=== PATIENT | female | born 1980 | race Caucasian/White ===

== ENCOUNTER 2018-11-28 08:32 | Day surgery (SDC) | payer OTHER ==
[2018-11-28] MEDS ORDERED: Lactated Ringers 1,000 ML IV SCH (08:45)
[2018-11-28] MEDS ORDERED: Cyanocobalamin (Vitamin B12) 1,000 MCG/ML SDV IM ONE (09:00)
[2018-11-28] MEDS ORDERED: VITAMIN K IV ONE ×4 (09:45)
[2018-11-28] MEDS ORDERED: THIAMINE IV ONE ×4 (09:45)
[2018-11-28] MEDS ORDERED: CHROMIUM IV ONE ×4 (09:45)
[2018-11-28] MEDS ORDERED: ZINC IV ONE ×4 (09:45)
[2018-11-28] MEDS ORDERED: [UNRECOGNIZED DRUG - OTHER] IV ONE ×4 (09:45)
[2018-11-28] MEDS ORDERED: MVI IV ONE ×4 (09:45)
[2018-11-28] MEDS ORDERED: MANG IV ONE ×4 (09:45)
[2018-11-28] MEDS ORDERED: COPPER IV ONE ×4 (09:45)
[2018-11-28] MEDS ORDERED: Glycopyrrolate 0.2 MG/ML 2 ML SDV IVPUSH ONE (09:45)
[2018-11-28] MEDS ORDERED: fentaNYL 100 MCG/2 ML SDV ONE (11:03)
[2018-11-28] MEDS ORDERED: Midazolam 1 MG/ML 2 ML SDV ONE (11:03)
[2018-11-28] MEDS ORDERED: Propofol 200 MG/20 ML SDV ONE (11:03)
[2018-11-28] MEDS ORDERED: Dexamethasone 4 MG/ML SDV ONE (11:26)
[2018-11-28] MEDS ORDERED: Sodium Chloride 0.9% 10 ML Syringe FLUSH ONE (13:28)
[2018-11-28] MEDS ORDERED: Iopamidol 612 MG/ML 150 ML Bottle IV PRN (13:28)
[2018-11-28] MEDS ORDERED: Lidocaine 2% 60 ML, Alum Hydrox/Mag Hydrox/Simeth 360 ML PO PRN ×2 (14:11)
[2018-11-28] MEDS ORDERED: Hyoscyamine 0.125 MG Tab.SL SL ONE (14:30)
--- NOTE | 2018-11-28 14:42 | CT ---
CT abdomen and pelvis. Indication: Pain post UTILIZATION REVIEWER dilatation. Technique: Autodosage and iterative reconstruction techniques employed. Findings: Lung bases are clear. Postoperative changes of a Aletha-en-Y gastrojejunostomy. No evidence for free air at the gastric pouch or focal fluid collection. No fat stranding at this location. Air-fluid level at the Aletha limb which is nondilated. Jejunal jejunal anastomosis is nondilated. Air-fluid levels within small bowel loops. Free fluid which is mild within the pelvis. Right ovarian cyst or follicle up to 2.9 cm. IUD within the uterus. No dilated loops of large bowel. Normal appendix right lower quadrant. Liver enhances normally. Prior cholecystectomy change. Pancreas within normal limits. Adrenal glands are within normal limits. No hydronephrosis within the kidneys. No acute osseous abnormality. Impression: 1. No evidence for free air at the GE junction. 2. There are a few air-fluid levels scattered within the small bowel which are nonspecific. 3. Mild amount of free pelvic fluid.
--- NOTE | 2018-12-02 14:15 | OR ---
DATE OF PROCEDURE: 11/28/2018 PREOPERATIVE DIAGNOSIS: Probable stricture at gastrojejunostomy. POSTOPERATIVE DIAGNOSIS: Tight stricture at gastrojejunostomy. OPERATIVE PROCEDURE: Upper GI endoscopy with dilation of gastrojejunostomy ([id number]). ANESTHESIA: IV sedation. INDICATION FOR PROCEDURE: The patient is now 31 days status post a Aletha-en-Y gastric bypass presenting with symptoms suggestive of stricturing at the gastrojejunostomy. Plan is to proceed with upper GI endoscopy with dilation as indicated. Potential risks including bleeding and perforation were discussed, and the patient wishes to proceed. DETAILS OF PROCEDURE: The patient was taken to the operating room and placed in a left lateral decubitus position. IV sedation was administered, after which the upper GI endoscope was passed orally through the length of the esophagus into the gastric pouch. No retained food or fluid was noted. The patient was noted to have a quite tight stricture at gastrojejunostomy. This was not associated with any significant mucosal inflammation per se. A Bard gastrointestinal catheter was centered across the anastomosis with fluoroscopic surveillance and inflated to 36-[place]at[place] size. This was held in position for 1 minute, after which the balloon catheter was deflated and withdrawn. Scope easily passed through the anastomosis. No complications were noted. The patient was taken to the recovery room in satisfactory condition. The patient during the postoperative period complained of some upper abdominal pain and dysphagia. A CT scan was obtained which showed no signs of perforation, and thereafter with combination of Levsin and the mix of Mylanta and viscous xylocaine taken orally, the patient's symptoms subsided. She was able to re-establish oral intake satisfactorily without significant pain. She will be sent home with a prescription for the above 2 agents, and she will be following up with Doreen Vaughan at [facility] in [place]. Dhaval Martínez MD /[id number]
== END 2018-11-28 15:34 | disposition home or self-care (01) ==
LOC: JP.SDS 08:32
PROVIDERS: ATTEND Surgery
DX: K91.89 Other postprocedural complications and disorders of digestive system (principal); E66.01 Morbid (severe) obesity due to excess calories; E28.2 Polycystic ovarian syndrome; E03.9 Hypothyroidism, unspecified; Z93.4 Other artificial openings of gastrointestinal tract status
CPT/HCPCS: 43245; 74177; 81025; A9270; J1100; J2250; J2704; J3010; J3411; J3420; J3490; J7030; J7120

== ENCOUNTER → 2018-12-12 | Day surgery (SDC) | payer OTHER ==
[~2018-12-12] MED LIST: CHROMIUM IV ONE; COPPER IV ONE; Cyanocobalamin (Vitamin B12) 1,000 MCG/ML SDV IM ONE; Dexamethasone 4 MG/ML SDV ONE; Glycopyrrolate 0.2 MG/ML 2 ML SDV IVPUSH ONE; Lactated Ringers 1,000 ML IV SCH; MANG IV ONE; MVI IV ONE; Midazolam 1 MG/ML 2 ML SDV ONE; Propofol 200 MG/20 ML SDV ONE; THIAMINE IV ONE; VITAMIN K IV ONE; ZINC IV ONE; [UNRECOGNIZED DRUG - OTHER] IV ONE; fentaNYL 100 MCG/2 ML SDV ONE
--- NOTE | 2018-12-15 13:11 | OR ---
DATE OF PROCEDURE: 12/12/2018 PREOPERATIVE DIAGNOSIS: Probable stricture of gastrojejunostomy. POSTOPERATIVE DIAGNOSIS: Moderate stricture of gastrojejunostomy. OPERATIVE PROCEDURE: Upper GI endoscopy with dilation of gastrojejunostomy ([id number]). ANESTHESIA: IV sedation. INDICATION FOR PROCEDURE: This is a 38-year-old status post Aletha-en-Y gastric bypass on 10/28/2018. She had initial dilation on 11/28/2018, and presents now with some symptoms suggestive of recurrent stricturing at her gastrojejunostomy. Plan is to proceed with upper GI endoscopy with dilation as indicated. Potential risks including bleeding and perforation were discussed and the patient wishes to proceed. DETAILS OF PROCEDURE: The patient was taken to the operating room and placed in a left lateral decubitus position. IV sedation was administered, after which the upper GI endoscope was passed orally through the length of the esophagus and into the gastric pouch. No retained food or fluid was noted. The patient's degree of stricturing was much less than previously seen with a 1 cm scope almost being able to be passed through the anastomosis. Using fluoroscopic surveillance, a Bard gastrointestinal balloon catheter was centered across the anastomosis, and this was then inflated to 36-Greenlandic at level 2 and held in position for 1 minute after which the balloon catheter was deflated and withdrawn. The scope could then easily be passed through the anastomosis, visualizing the anastomosis, appeared to be otherwise uncomplicated and the scope withdrawn, procedure concluded. The patient was taken to the recovery room in satisfactory condition. Dhaval Martínez MD Job #: [id number]
== END ==
LOC: JP.SDS 08:39
PROVIDERS: ATTEND Surgery
DX: K91.89 Other postprocedural complications and disorders of digestive system (principal); Z98.84 Bariatric surgery status
CPT/HCPCS: 43245; 81025; J1100; J2250; J2704; J3010; J3411; J3420; J3490; J7120

== ENCOUNTER 2022-01-20 11:21 | Inpatient (IN) | payer OTHER ==
[2022-01-20] MEDS ORDERED: Ondansetron 4 MG/2 ML SDV ONE (11:47)
[2022-01-20] MEDS ORDERED: Propofol 200 MG/20 ML SDV ONE (11:47)
[2022-01-20] MEDS ORDERED: Dexamethasone 4 MG/ML SDV ONE (11:47)
[2022-01-20] MEDS ORDERED: Neostigmine Methylsulfate 1 MG/ML 5 ML Syringe ONE (11:47)
[2022-01-20] MEDS ORDERED: Succinylcholine 200 MG/10 ML MDV ONE (11:47)
[2022-01-20] MEDS ORDERED: Glycopyrrolate 0.2 MG/ML 5 ML MDV ONE (11:47)
[2022-01-20] MEDS ORDERED: Rocuronium 50 MG/5 ML Vial ONE (11:47)
[2022-01-20] MEDS ORDERED: fentaNYL 250 MCG/5 ML SDV ONE ×2 (11:52→12:39)
[2022-01-20] MEDS ORDERED: Meropenem 500 MG SDV ONE (11:53)
[2022-01-20] MEDS ORDERED: Lidocaine 1% with EPINEPHrine 1:100,000 50 ML MDV ONE (11:54)
[2022-01-20] MEDS ORDERED: Bupivacaine 0.5% 50 ML MDV ONE (11:54)
[2022-01-20] MEDS ORDERED: cefOXitin 2 GM in Sodium Chloride 0.9% 50 ML IV ONE (12:30)
[2022-01-20] MEDS ORDERED: HYDROmorphone/Normal Saline 6 MG/30 ML PCA Vial IV PRN (12:45)
[2022-01-20] MEDS ORDERED: Lactated Ringers 1,000 ML IV SCH (12:45)
[2022-01-20] MEDS ORDERED: Scopolamine 1.5 MG Transdermal Patch ONE (12:56)
[2022-01-20] MEDS ORDERED: Ketamine 500 MG/5 ML MDV IV SCH (13:00)
[2022-01-20] MEDS ORDERED: Ropivacaine 44 ML, dexAMETHasone 8 MG, EPINEPHrine 0.4 MG, Sodium Chloride 0.9% 33.6 ML NERVRT SCH ×4 (13:00)
[2022-01-20] MEDS ORDERED: Ketamine 19 MG in Sodium Chloride 0.9% 19.81 ML IV SCH (13:00)
[2022-01-20] MEDS ORDERED: Naloxone 0.4 MG/ML SDV IV PRN (13:00)
[2022-01-20] MEDS: HYDROmorphone/Normal Saline 6 MG/30 ML PCA Vial IV PRN (13:22)
[2022-01-20] MEDS ORDERED: Lactated Ringers 1,000 ML ONE (13:28)
[2022-01-20] MEDS ORDERED: Cyclobenzaprine 10 MG Tab PO PRN (15:21)
[2022-01-20] MEDS ORDERED: Ondansetron 4 MG/2 ML SDV IVPUSH PRN (16:00)
[2022-01-20] MEDS ORDERED: hydrOXYzine HCL 100 MG/2 ML SDV IM PRN (16:00)
[2022-01-20] MEDS ORDERED: Metoclopramide 10 MG/2 ML SDV IVPUSH PRN (16:00)
[2022-01-20] MEDS ORDERED: Labetalol 20 MG/4 ML Syringe IVPUSH PRN (16:00)
[2022-01-20] MEDS ORDERED: diphenhydrAMINE 50 MG/ML SDV IVPUSH PRN (16:00)
[2022-01-20] MEDS ORDERED: Acetaminophen 500 MG Tab PO PRN (16:00)
[2022-01-20] MEDS: cefOXitin 2 GM in Sodium Chloride 0.9% 50 ML IV SCH ×2 (17:06→22:01)
[2022-01-20] MEDS: Acetaminophen 500 MG Tab PO SCH (17:12)
[2022-01-20] MEDS: Pantoprazole 40 MG Vial IVPUSH SCH (17:12)
[2022-01-20] MEDS: Dextrose 5%-Lactated Ringers 1,000 ML IV SCH (21:21)
[2022-01-20] MEDS: Ketotifen 0.025% Ophth Soln 5 ML Bottle EYEBOTH SCH (22:00)
[2022-01-20] MEDS: Heparin Sodium 5,000 Units/ML Vial SUBCUT SCH (22:01)
[2022-01-21] MEDS: Acetaminophen 500 MG Tab PO SCH ×4 (00:10→23:32)
[2022-01-21] MEDS: HYDROmorphone/Normal Saline 6 MG/30 ML PCA Vial IV PRN (03:34)
[2022-01-21] MEDS: cefOXitin 2 GM in Sodium Chloride 0.9% 50 ML IV SCH ×2 (03:38→12:09)
[2022-01-21] MEDS: Dextrose 5%-Lactated Ringers 1,000 ML IV SCH (03:39)
[2022-01-21] MEDS ORDERED: Iopamidol 612 MG/ML 50 ML SDV PO ONE (04:15)
[2022-01-21] MEDS: Heparin Sodium 5,000 Units/ML Vial SUBCUT SCH ×2 (08:42→21:08)
[2022-01-21] MEDS ORDERED: Magnesium Hydroxide 400 MG/5 ML Susp 30 ML Cup PO PRN (08:42)
[2022-01-21] MEDS: Celecoxib 200 MG Cap PO SCH ×2 (08:43→21:08)
[2022-01-21] MEDS: PHENTERMINE 37.5 MG PO SCH (08:43)
[2022-01-21] MEDS: Levothyroxine 25 MCG Tab PO SCH (08:44)
[2022-01-21] MEDS: Escitalopram 20 MG Tab PO SCH (08:45)
[2022-01-21] MEDS ORDERED: Dextrose 5%-Lactated Ringers 1,000 ML IV SCH ×2 (08:45)
[2022-01-21] MEDS: Docusate Sodium 100 MG Cap PO SCH ×2 (08:45→21:08)
[2022-01-21] MEDS: SCOPOLAMINE PATCH CHECK TOP SCH (09:03)
[2022-01-21] MEDS: Magnesium Sulfate/Water 2 GM in Premix Bag 1 BAG IV SCH ×3 (09:03→21:08)
[2022-01-21] MEDS: Ketotifen 0.025% Ophth Soln 5 ML Bottle EYEBOTH SCH ×2 (09:03→21:07)
[2022-01-21] MEDS: Pantoprazole 40 MG Vial IVPUSH SCH (15:58)
[2022-01-21] MEDS ORDERED: traMADol 50 MG Tab PO PRN (18:23)
[2022-01-21] MEDS: HYDROmorphone 2 MG Tab PO PRN (23:29)
[2022-01-22] MEDS: Magnesium Sulfate/Water 2 GM in Premix Bag 1 BAG IV SCH ×2 (04:02→10:20)
[2022-01-22] MEDS: HYDROmorphone 2 MG Tab PO PRN ×2 (04:02→11:17)
[2022-01-22] MEDS: Acetaminophen 500 MG Tab PO SCH (07:46)
[2022-01-22] MEDS: Levothyroxine 25 MCG Tab PO SCH (07:47)
[2022-01-22] MEDS: Heparin Sodium 5,000 Units/ML Vial SUBCUT SCH (07:47)
[2022-01-22] MEDS: Escitalopram 20 MG Tab PO SCH (10:18)
[2022-01-22] MEDS: Docusate Sodium 100 MG Cap PO SCH (10:18)
[2022-01-22] MEDS: Celecoxib 200 MG Cap PO SCH (10:18)
[2022-01-22] MEDS: SCOPOLAMINE PATCH CHECK TOP SCH (10:19)
[2022-01-22] MEDS: Ketotifen 0.025% Ophth Soln 5 ML Bottle EYEBOTH SCH (10:23)
[2022-01-22] MEDS: PHENTERMINE 37.5 MG PO SCH (10:23)
== END 2022-01-22 12:51 | disposition home or self-care (01) | DRG 329 ==
LOC: JP.MS 11:21
PROVIDERS: ADMIT Surgery; ATTEND Surgery
PROC: 0DS80ZZ Reposition Small Intestine, Open Approach (ICD-10-PCS; principal; 2022-01-20)
PROC: 0DB80ZZ Excision of Small Intestine, Open Approach (ICD-10-PCS; 2022-01-20)
PROC: 0WQF0ZZ Repair Abdominal Wall, Open Approach (ICD-10-PCS; 2022-01-20)
PROC: 0D1A0ZA Bypass Jejunum to Jejunum, Open Approach (ICD-10-PCS; 2022-01-20)
PROC: 3E0M05Z Introduction of Adhesion Barrier into Peritoneal Cavity, Open Approach (ICD-10-PCS; 2022-01-20)
DX: K95.89 Other complications of other bariatric procedure (principal); K56.2 Volvulus; F41.8 Other specified anxiety disorders; E03.9 Hypothyroidism, unspecified; E66.9 Obesity, unspecified; E28.2 Polycystic ovarian syndrome; J45.909 Unspecified asthma, uncomplicated; Z90.49 Acquired absence of other specified parts of digestive tract; Z68.29 Body mass index [BMI] 29.0-29.9, adult
CPT/HCPCS: 36415; 74240; 80053; 82728; 83735; 83880; 84100; 85025; A9270-GY; C9113; J0171; J0330; J0694; J1100; J1170; J1644; J2185; J2405; J2704; J2710; J2795; J3010; J3475; J3490; J7120; J7121; Q9967

== ENCOUNTER 2022-04-25 09:02 | Day surgery (SDC) | payer OTHER ==
[~2022-04-25 09:02] MED LIST changes: -CHROMIUM IV ONE; -COPPER IV ONE; -Cyanocobalamin (Vitamin B12) 1,000 MCG/ML SDV IM ONE; -Dexamethasone 4 MG/ML SDV ONE; -Glycopyrrolate 0.2 MG/ML 2 ML SDV IVPUSH ONE; +Lactated Ringers 1,000 ML IV ONE; -Lactated Ringers 1,000 ML IV SCH; -MANG IV ONE; -MVI IV ONE; -Midazolam 1 MG/ML 2 ML SDV ONE; -Propofol 200 MG/20 ML SDV ONE; -THIAMINE IV ONE; -VITAMIN K IV ONE; -ZINC IV ONE; -[UNRECOGNIZED DRUG - OTHER] IV ONE; -fentaNYL 100 MCG/2 ML SDV ONE
[2022-04-25] MEDS ORDERED: Cyanocobalamin (Vitamin B12) 1,000 MCG/ML SDV IM ONE (10:00)
[2022-04-25] MEDS ORDERED: Propofol 200 MG/20 ML SDV ONE (10:01)
[2022-04-25] MEDS ORDERED: fentaNYL 100 MCG/2 ML SDV ONE (10:01)
[2022-04-25] MEDS ORDERED: Midazolam 1 MG/ML 2 ML SDV ONE (10:01)
[2022-04-25] MEDS ORDERED: Glycopyrrolate 0.2 MG/ML 2 ML SDV IVPUSH ONE (10:15)
[2022-04-25] MEDS ORDERED: MVI, Adult with Vitamin K 10 ML, Thiamine 200 MG, Zinc/Copper/Manganese/Selenium 1 ML i... IV ONE ×4 (11:00)
[2022-04-25] MEDS ORDERED: Dexamethasone 4 MG/ML SDV ONE (11:20)
[2022-04-25] MEDS ORDERED: Pantoprazole 40 MG Vial IVPUSH ONE (12:00)
== END 2022-04-25 12:53 | disposition home or self-care (01) ==
LOC: JP.SDS 09:02
PROVIDERS: ATTEND Surgery
DX: K91.89 Other postprocedural complications and disorders of digestive system (principal); R13.10 Dysphagia, unspecified; E03.9 Hypothyroidism, unspecified; E66.9 Obesity, unspecified
CPT/HCPCS: 43245; 81025; C9113; J1100; J2250; J2704; J3010; J3411; J3420; J3490; J7120

== ENCOUNTER 2023-02-08 07:54 | Inpatient (IN) | payer OTHER ==
[2023-02-08] MEDS ORDERED: fentaNYL 50 MCG/ML SDV ONE (08:51)
[2023-02-08] MEDS ORDERED: Midazolam 1 MG/ML 2 ML SDV ONE (08:51)
[2023-02-08] MEDS ORDERED: Propofol 200 MG/20 ML SDV ONE (08:51)
[2023-02-08] MEDS: Dextrose 5%-Lactated Ringers 1,000 ML IV SCH ×2 (09:07→16:56)
[2023-02-08] MEDS ORDERED: Iopamidol 612 MG/ML 100 ML Bottle IV ONE (09:21)
[2023-02-08] MEDS ORDERED: Sodium Chloride 0.9% 50 ML IV ONE (09:21)
[2023-02-08] MEDS ORDERED: Sodium Chloride 0.9% 10 ML Syringe FLUSH ONE (09:21)
[2023-02-08] MEDS ORDERED: Glycopyrrolate 0.2 MG/ML 2 ML SDV IVPUSH ONE (09:30)
[2023-02-08] MEDS ORDERED: Ondansetron 4 MG/2 ML SDV IVPUSH PRN (11:34)
[2023-02-08] MEDS ORDERED: Acetaminophen 500 MG Tab PO PRN (11:34)
[2023-02-08] MEDS ORDERED: Ketotifen 0.025% Ophth Soln 5 ML Bottle EYEBOTH PRN (11:40)
[2023-02-08] MEDS ORDERED: HYDROmorphone 0.5 MG/0.5 ML Syringe IVPUSH PRN (12:00)
[2023-02-08] MEDS ORDERED: HYDROmorphone 1 MG/ML Syringe IV PRN (12:00)
[2023-02-08 12:25] LABS: ESTIMATED GFR 111 mL/min (>60)
[2023-02-08] MEDS ORDERED: diphenhydrAMINE 50 MG/ML SDV IVPUSH PRN (12:37)
[2023-02-08] MEDS: Pantoprazole 40 MG Vial IV SCH (13:33)
[2023-02-09] MEDS: Dextrose 5%-Lactated Ringers 1,000 ML IV SCH ×2 (02:35→23:29)
[2023-02-09] MEDS ORDERED: Levothyroxine 25 MCG Tab PO SCH (07:30)
[2023-02-09] MEDS ORDERED: buPROPion 150 MG Tab.ER PO SCH (09:00)
[2023-02-09] MEDS: Escitalopram 20 MG Tab PO SCH (09:05)
[2023-02-09] MEDS ORDERED: Ketamine 500 MG/5 ML MDV IV SCH (10:00)
[2023-02-09] MEDS ORDERED: Ketamine 19 MG in Sodium Chloride 0.9% 19.81 ML IV SCH (10:00)
[2023-02-09] MEDS ORDERED: cefOXitin 2 GM in Sodium Chloride 0.9% 50 ML IV ONE (10:00)
[2023-02-09] MEDS ORDERED: Glycopyrrolate 0.2 MG/ML 5 ML MDV ONE (10:13)
[2023-02-09] MEDS ORDERED: Ondansetron 4 MG/2 ML SDV ONE (10:13)
[2023-02-09] MEDS ORDERED: Dexamethasone 4 MG/ML SDV ONE (10:13)
[2023-02-09] MEDS ORDERED: fentaNYL 250 MCG/5 ML SDV ONE ×2 (10:13→12:19)
[2023-02-09] MEDS ORDERED: Succinylcholine 200 MG/10 ML MDV ONE (10:13)
[2023-02-09] MEDS ORDERED: Propofol 200 MG/20 ML SDV ONE (10:13)
[2023-02-09] MEDS ORDERED: Neostigmine Methylsulfate 1 MG/ML 5 ML Syringe ONE (10:13)
[2023-02-09] MEDS ORDERED: Rocuronium 50 MG/5 ML Vial ONE (10:13)
[2023-02-09] MEDS ORDERED: Meropenem 500 MG SDV ONE (11:18)
[2023-02-09] MEDS ORDERED: Bupivacaine 0.5% 50 ML MDV ONE (11:19)
[2023-02-09] MEDS ORDERED: Lidocaine 1% with EPINEPHrine 1:100,000 50 ML MDV ONE (11:20)
[2023-02-09] MEDS ORDERED: Lactated Ringers 1,000 ML ONE (12:06)
[2023-02-09] MEDS ORDERED: Sodium Chloride 0.9% 10 ML ONE (12:07)
[2023-02-09] MEDS ORDERED: cefOXitin 2 GM Vial ONE (12:07)
[2023-02-09] MEDS ORDERED: diphenhydrAMINE 50 MG/ML SDV IVPUSH PRN (13:37)
[2023-02-09] MEDS ORDERED: diphenhydrAMINE 25 MG Cap PO PRN (13:37)
[2023-02-09] MEDS ORDERED: Naloxone 0.4 MG/ML SDV IVPUSH PRN (13:37)
[2023-02-09] MEDS ORDERED: Ondansetron 4 MG/2 ML SDV IVPUSH PRN ×2 (13:37→15:00)
[2023-02-09] MEDS ORDERED: hydrOXYzine HCl 50 MG/ML SDV IM ONE (13:45)
[2023-02-09] MEDS ORDERED: fentaNYL 50 MCG/ML SDV IVPUSH ONE (13:45)
[2023-02-09] MEDS: HYDROmorphone/Normal Saline 6 MG/30 ML PCA Vial IV PRN (13:51)
[2023-02-09] MEDS ORDERED: Naloxone 0.4 MG/ML SDV IV PRN (14:00)
[2023-02-09] MEDS ORDERED: Cyclobenzaprine 10 MG Tab PO PRN (14:13)
[2023-02-09] MEDS ORDERED: SCOPOLAMINE PATCH CHECK TOP SCH (14:30)
[2023-02-09] MEDS ORDERED: Labetalol 20 MG/4 ML Syringe IVPUSH PRN (15:00)
[2023-02-09] MEDS ORDERED: Acetaminophen 500 MG Tab PO PRN (15:00)
[2023-02-09] MEDS ORDERED: hydrOXYzine HCl 50 MG/ML SDV IM PRN (15:00)
[2023-02-09] MEDS ORDERED: Metoclopramide 10 MG/2 ML SDV IVPUSH PRN (15:00)
[2023-02-09] MEDS: MVI, Adult with Vitamin K 10 ML, Thiamine 200 MG, Zinc/Copper/Manganese/Selenium 1 ML i... IV SCH ×4 (16:15)
[2023-02-09] MEDS: Pantoprazole 40 MG Vial IV SCH (16:18)
[2023-02-09] MEDS: cefOXitin 2 GM in Sodium Chloride 0.9% 50 ML IV SCH (18:03)
[2023-02-09] MEDS: Heparin Sodium 5,000 Units/ML Vial SUBCUT SCH (18:34)
[2023-02-09] MEDS: Acetaminophen 500 MG Tab PO SCH (19:38)
[2023-02-10] MEDS: cefOXitin 2 GM in Sodium Chloride 0.9% 50 ML IV SCH ×5 (00:05→23:38)
[2023-02-10] MEDS: HYDROmorphone/Normal Saline 6 MG/30 ML PCA Vial IV PRN (01:35)
[2023-02-10] MEDS: diphenhydrAMINE 50 MG/ML SDV IVPUSH PRN ×2 (02:33→07:41)
[2023-02-10] MEDS ORDERED: Iopamidol 612 MG/ML 30 ML SDV PO ONE (04:12)
[2023-02-10] MEDS: Acetaminophen 500 MG Tab PO SCH ×3 (04:30→20:11)
[2023-02-10] MEDS: Heparin Sodium 5,000 Units/ML Vial SUBCUT SCH ×2 (06:05→17:08)
[2023-02-10] MEDS: Dextrose 5%-Lactated Ringers 1,000 ML IV SCH (07:22)
[2023-02-10] MEDS ORDERED: Polyethylene Glycol 3350 Powder 17 GM Packet PO PRN (08:46)
[2023-02-10] MEDS: Celecoxib 200 MG Cap PO SCH ×2 (08:48→20:11)
[2023-02-10] MEDS: Levothyroxine 25 MCG Tab PO SCH (08:48)
[2023-02-10] MEDS: Escitalopram 20 MG Tab PO SCH (08:49)
[2023-02-10] MEDS: oxyCODONE 5 MG Tab PO PRN ×4 (08:52→21:17)
[2023-02-10] MEDS: Docusate Sodium 100 MG Cap PO SCH ×2 (11:07→20:12)
[2023-02-10] MEDS: Polyethylene Glycol 3350 Powder 17 GM Packet PO SCH (11:07)
[2023-02-10] MEDS: Bisacodyl 5 MG Tab PO SCH ×2 (11:18→20:11)
[2023-02-10] MEDS: Pantoprazole 40 MG Vial IV SCH (13:12)
[2023-02-10] MEDS: MVI, Adult with Vitamin K 10 ML, Thiamine 200 MG, Zinc/Copper/Manganese/Selenium 1 ML i... IV SCH ×4 (16:16)
[2023-02-11] MEDS: cefOXitin 2 GM in Sodium Chloride 0.9% 50 ML IV SCH (05:51)
[2023-02-11] MEDS: Heparin Sodium 5,000 Units/ML Vial SUBCUT SCH (05:51)
[2023-02-11] MEDS: Acetaminophen 500 MG Tab PO SCH (05:51)
[2023-02-11] MEDS: oxyCODONE 5 MG Tab PO PRN ×2 (05:57→09:56)
[2023-02-11] MEDS: Levothyroxine 25 MCG Tab PO SCH (07:49)
[2023-02-11] MEDS ORDERED: Polyethylene Glycol 3350 Powder 119 GM Bottle PO ONE (09:00)
[2023-02-11] MEDS ORDERED: Cyanocobalamin (Vitamin B12) 1,000 MCG/ML SDV IM ONE (09:00)
[2023-02-11] MEDS: Celecoxib 200 MG Cap PO SCH (09:51)
[2023-02-11] MEDS: Bisacodyl 5 MG Tab PO SCH (09:51)
[2023-02-11] MEDS: Docusate Sodium 100 MG Cap PO SCH (09:51)
[2023-02-11] MEDS: Polyethylene Glycol 3350 Powder 17 GM Packet PO SCH (09:52)
[2023-02-11] MEDS: Escitalopram 20 MG Tab PO SCH (09:52)
[2023-02-11] MEDS ORDERED: Pantoprazole 40 MG Tab.CR PO SCH (11:30)
== END 2023-02-11 11:36 | disposition home or self-care (01) | DRG 330 ==
LOC: JP.SDS 07:54 → JP.ICU 11:00
PROVIDERS: ADMIT Surgery; ATTEND Surgery
PROC: 0DB80ZZ Excision of Small Intestine, Open Approach (ICD-10-PCS; principal; 2023-02-09)
PROC: 0DB80ZZ Excision of Small Intestine, Open Approach (ICD-10-PCS; 2023-02-09)
PROC: 0WQF0ZZ Repair Abdominal Wall, Open Approach (ICD-10-PCS; 2023-02-09)
PROC: 3E0M05Z Introduction of Adhesion Barrier into Peritoneal Cavity, Open Approach (ICD-10-PCS; 2023-02-09)
DX: K56.50 Intestinal adhesions [bands], unspecified as to partial versus complete obstruction (principal); K43.0 Incisional hernia with obstruction, without gangrene; K91.2 Postsurgical malabsorption, not elsewhere classified; Z68.41 Body mass index [BMI] 40.0-44.9, adult; K56.1 Intussusception; E66.01 Morbid (severe) obesity due to excess calories; E03.9 Hypothyroidism, unspecified; E28.2 Polycystic ovarian syndrome
CPT/HCPCS: 36415; 74177; 74177-26; 74240; 74240-26; 80053; 83735; 84100; 84443; 85025; 88302; 88305; 88307; A9270-GY; C9113; J0131; J0171; J0330; J0694; J1100; J1170; J1200; J1644; J2185; J2250; J2405; J2704; J2710; J2795; J3010; J3410; J3411; J3420; J3490; J7120; J7121; Q9967; U0002